=== PATIENT | male | born 1945 | race Caucasian/White ===

== ENCOUNTER → 2020-07-18 15:51 | Outpatient (CLI) | payer OTHER, SELFPAY ==
--- NOTE | 2020-07-18 | DI.RAD.S_ITS ---
PROCEDURE: XR CHEST 2V INDICATIONS: DYSPNEA TECHNIQUE: 2 views of the chest were acquired. COMPARISON: None. FINDINGS: Surgical changes and devices: None. Lungs and pleura: Lungs are clear. No pleural effusions or pneumothorax. Mediastinum: Mediastinal contours are normal. Heart size is normal. Bones and chest wall: No suspicious bony abnormalities. Soft tissues appear unremarkable. IMPRESSION: Normal for age, source of current dyspnea symptoms is not seen. Dictated by: Marcelo Amezcua M.D. on 07/18/2020 at 17:13 Approved by: Marcelo Amezcua M.D. on 07/18/2020 at 17:13
== END ==
PROVIDERS: PCP Family Medicine; Referring Provider Family Medicine; Visit Provider Family Medicine
DX: R06.00 Dyspnea, unspecified (principal)
CPT/HCPCS: 71046

== ENCOUNTER → 2020-10-02 11:29 | Outpatient (CLI) | payer OTHER, SELFPAY ==
[2020-10-02 12:49] LABS: COVID19 -Nasal RAPID Negative (Negative)
== END ==
PROVIDERS: PCP Family Medicine; Visit Provider Physician Assistant
DX: Z20.822 Contact with and (suspected) exposure to COVID-19 (principal)
CPT/HCPCS: 87635

== ENCOUNTER 2020-10-03 07:49 | Day surgery (SDC) | payer OTHER, SELFPAY ==
[2020-10-03] MEDS: PROPARACAINE 0.5% OPHTH SOL 2 DROPS EYE-OP (08:31)
[2020-10-03] MEDS: CATARACT EYE COMPOUND (10 DROPS/SYRINGE) 3 DROPS EYE-OP (08:32)
[2020-10-03 08:41] VITALS: BP 140/85; PULSE 55; RESP 16; TEMP 36.7; O2SAT 97; BMI 30.7
--- NOTE | 2020-10-03 09:37 | P.OP_ITS ---
Operative Date/Time/Diagnoses Pre-op diagnosis: Nuclear Cataract Left eye Post-op diagnosis: same Procedure & Clinicians Same procedure as scheduled: Yes Surgeon: Prateek Pereira Anesthesia Type: MAC +/- and Sedation Operative Notes Procedure in detail: Patient brought to the operating suite. Tetracaine drops placed in the left eye. Patient was prepped and draped in sterile manner. Wire lid speculum was placed in the eye. Betadine drops were placed on the eye. This was irrigated. Lidocaine jelly was placed on the eye. A paracentesis port was created with a side-port blade. 0.1 mL 1% preservative free lidocaine was injected into the anterior chamber. The anterior chamber was deepened with viscoelastic. 2.6 mm keratome was used to create a temporal clear corneal incision. Cystotome and Utrata forceps were used to create continuous tear capsulorrhexis. Balanced salt solution was used to hydro dissect the nucleus. The phacoemulsification handpiece was inserted and the nucleus was removed using the stop and chop technique. The irrigation aspiration handpiece was inserted and the remaining cortex was removed. Anterior chamber was deepened with viscoe lastic. An Silva ZCB00 intraocular lens with a power of 21.5 was injected into the capsular bag. Irrigation aspiration handpiece was inserted and the remaining viscoelastic was removed. Incision was hydrated with balanced salt solution and found to be leak free with pressure with Weck-Jodi sponges. 0.1 mL Vigamox injected anterior chamber. 0.3 mL Kenalog 10 mg was injected subconjunctivally. Lid speculum was removed. The patient left the operating room in excellent condition. Complications: none Post-operative Condition: stable Disposition: same day surgery
--- NOTE | 2020-10-03 09:37 | PM.PREOP ---
Pre-operative Note Interval Note History & Physical reviewed/Exam performed by Physician: Yes Changes to H&P: No
[2020-10-03] MEDS: MOXIFLOXACIN INJ 5 MG/ML VIAL EYE-OP (09:54)
[2020-10-03] MEDS: PHENYLEPHRINE/LIDOCAINE VIAL (OR) 0.2 ML EYE-OP (09:54)
[2020-10-03] MEDS: CHONDROIDTIN/SOD HYALURONATE 1.05 ML SYRINGE INTRAOCULA (09:54)
[2020-10-03] MEDS: TRIAMCINOLONE 50 MG/5 ML VIAL INJ (09:55)
[2020-10-03] MEDS: BALANCED SALT IRRIG SOLN NO.2 500 ML, EPINEPHrine 1 MG IRR (09:55)
[2020-10-03] MEDS: TETRACAINE 0.5% OPHTH DROPS 4 ML 2 DROPS EYE-OP (09:55)
[2020-10-03] MEDS: LIDOCAINE 2% (GLYDO) 6 ML GEL TOP (09:56)
[2020-10-03 10:18] VITALS: BP 110/75; PULSE 58; RESP 16; TEMP 36.4; O2SAT 96
== END 2020-10-03 10:36 | disposition home or self-care (01) ==
LOC: OR 07:51
PROVIDERS: PCP Family Medicine; Referring Provider Ophthalmology; Visit Provider Ophthalmology
PROC: (CPT 66984; principal; 2020-10-03 09:45)
DX: H25.12 Age-related nuclear cataract, left eye (principal); I10 Essential (primary) hypertension
CPT/HCPCS: 66984; J0171; J2250; J3301

== ENCOUNTER → 2020-10-16 10:13 | Outpatient (CLI) | payer OTHER, SELFPAY ==
[2020-10-16 13:46] LABS: COVID19 -Nasal RAPID Negative (Negative)
== END ==
PROVIDERS: PCP Family Medicine; Visit Provider Physician Assistant
DX: Z20.822 Contact with and (suspected) exposure to COVID-19 (principal)
CPT/HCPCS: 87635

== ENCOUNTER 2020-10-17 07:59 | Day surgery (SDC) | payer OTHER, SELFPAY ==
[2020-10-17] MEDS: PROPARACAINE 0.5% OPHTH SOL 2 DROPS EYE-OP (08:38)
[2020-10-17] MEDS: CATARACT EYE COMPOUND (10 DROPS/SYRINGE) 3 DROPS EYE-OP (08:38)
[2020-10-17 08:48] VITALS: BP 165/80; PULSE 55; RESP 14; TEMP 37; O2SAT 96; BMI 30.7
--- NOTE | 2020-10-17 09:26 | PM.PREOP ---
Pre-operative Note Interval Note History & Physical reviewed/Exam performed by Physician: Yes Changes to H&P: No
--- NOTE | 2020-10-17 09:26 | PM.OP.1 ---
Operative Date/Time/Diagnoses Pre-op diagnosis: Nuclear cataract right eye Procedure & Clinicians Procedure: Cataract Surgery Same procedure as scheduled: Yes Surgeon: Prateek Pereira Anesthesia Type: MAC +/- and Sedation Operative Notes Procedure in detail: Patient brought to the operating suite. Tetracaine drops placed in the right eye. Patient was prepped and draped in sterile manner. Wire lid speculum was placed in the eye. Betadine drops were placed on the eye. This was irrigated. Lidocaine jelly was placed on the eye. A paracentesis port was created with a side-port blade. 0.1 mL 1% preservative free lidocaine was injected into the anterior chamber. The anterior chamber was deepened with viscoelastic. 2.6 mm keratome was used to create a temporal clear corneal incision. Cystotome and Utrata forceps were used to create continuous tear capsulorrhexis. Balanced salt solution was used to hydro dissect the nucleus. The phacoemulsification handpiece was inserted and the nucleus was removed using the stop and chop technique. The irrigation aspiration handpiece was inserted and the remaining cortex was removed. Anterior chamber was deepened with viscoelastic. An Silva ZCB00 intraocular lens with a power of 21.5 was injected into the capsular bag. Irrigation aspiration handpiece was inserted and the remaining viscoelastic was removed. Incision was hydrated with balanced salt solution and found to be leak free with pressure with Weck-Jodi sponges. 0.1 mL Vigamox injected anterior chamber. 0.3 mL Kenalog 10 mg was injected subconjunctivally. Lid speculum was removed. The patient left the operating room in excellent condition. Complications: none Post-operative Condition: stable Disposition: same day surgery
[2020-10-17] MEDS: LIDOCAINE 2% (GLYDO) 6 ML GEL TOP (09:39)
[2020-10-17] MEDS: CHONDROIDTIN/SOD HYALURONATE 1.05 ML SYRINGE INTRAOCULA (09:39)
[2020-10-17] MEDS: PHENYLEPHRINE/LIDOCAINE VIAL (OR) 0.2 ML EYE-OP (09:39)
[2020-10-17] MEDS: MOXIFLOXACIN INJ 4 MG/0.8 ML VIAL 0.5 MG EYE-OP (09:39)
[2020-10-17] MEDS: TRIAMCINOLONE 50 MG/5 ML VIAL INJ (09:40)
[2020-10-17] MEDS: TETRACAINE 0.5% OPHTH DROPS 4 ML 2 DROPS EYE-OP (09:40)
[2020-10-17] MEDS: BALANCED SALT IRRIG SOLN NO.2 500 ML, EPINEPHrine 1 MG IRR (09:40)
[2020-10-17 10:04] VITALS: BP 160/70; PULSE 61; RESP 14; TEMP 36.6; O2SAT 96
== END 2020-10-17 10:15 | disposition home or self-care (01) ==
PROVIDERS: PCP Family Medicine; Referring Provider Ophthalmology; Visit Provider Ophthalmology
PROC: (CPT 66984; principal; 2020-10-17 09:45)
DX: H25.11 Age-related nuclear cataract, right eye (principal); I10 Essential (primary) hypertension
CPT/HCPCS: 66984; J0171; J2250; J3301

== ENCOUNTER → 2024-10-25 09:30 | Outpatient (CLI) | payer OTHER, SELFPAY ==
--- NOTE | 2024-10-25 09:31 | DI.RAD.S_ITS ---
PROCEDURE: XR CERVICAL SPINE 2V OR 3V INDICATIONS: numbness, weakness of right hand, neck pain TECHNIQUE: Three views of the cervical spine were acquired. COMPARISON: None. FINDINGS: Cervical spine curvature and alignment: Normal. Bones: There are no osseous abnormalities. Disc spaces: Mild C5-6 C6-7 degenerative disc disease noted. There is mild C2-3 through C7-T1 degenerative facet disease Soft tissues: No soft tissue swelling, calcification or mass. IMPRESSION: Degeneration Dictated by: Audi Hsu M.D. on 10/25/2024 at 12:02 Approved by: Audi Hsu M.D. on 10/25/2024 at 12:03
== END ==
PROVIDERS: PCP Family Medicine; Referring Provider Family Medicine; Visit Provider Family Medicine
DX: M50.322 Other cervical disc degeneration at C5-C6 level (principal); M62.521 Muscle wasting and atrophy, not elsewhere classified, right upper arm; R29.898 Other symptoms and signs involving the musculoskeletal system; M47.812 Spondylosis without myelopathy or radiculopathy, cervical region; G89.29 Other chronic pain
CPT/HCPCS: 72040

== ENCOUNTER → 2024-10-27 07:02 | Outpatient (CLI) | payer OTHER, SELFPAY ==
--- NOTE | 2024-10-27 07:03 | DI.MRI.S_ITS ---
PROCEDURE: MR CERVICAL SPINE WO CON INDICATIONS: numbness, weakness of right hand, neck pain TECHNIQUE: Noncontrast sagittal T1 spin echo and T2 fast spin echo, sagittal STIR, foraminal oblique sagittal T2 fast spin echo, and axial gradient echo or T2 fast spin echo through the cervical spine. COMPARISON: [facility], CR, XR CERVICAL SPINE 2V OR 3V, 10/25/2024, 9:28. FINDINGS: Image quality: Excellent. Alignment and Curvature: There is trace, approximately 1-2 millimeters of C6-C7 and C7-T1 anterolisthesis. Bone Marrow: Marrow demonstrates normal overall signal. Spinal Cord: Visualized spinal cord has normal size and signal. No cerebellar tonsillar herniation. Paraspinous Soft Tissues: No paravertebral masses. Prevertebral soft tissues are normal in thickness. C2-C3: Loss of disc signal. Mild, diffuse disc bulge. No central stenosis. No neural foraminal narrowing. No neural compression. C3-C4: Loss of disc signal. Moderate, diffuse disc bulge. Mild bilateral facet hypertrophy. Mild right and moderate left uncovertebral hypertrophy. Severe narrowing of the central canal with slight compression of the cervical spinal cord. Severe bilateral neural foraminal narrowing with compression of the exiting C4 nerve roots. C4-C5: Loss of disc signal. Mild, diffuse disc bulge. Mild bilateral facet hypertrophy. Moderate narrowing of the central canal. Severe right and moderate left neural foraminal narrowing with compression of the exiting right C5 nerve root. C5-C6: Loss of disc signal and height. Mild, diffuse disc bulge. Mild bilateral facet hypertrophy. Mild bilateral uncovertebral hypertrophy. Mild to moderate narrowing of the central canal. Moderate bilateral neural foraminal narrowing. No neural compression. C6-C7: Loss of disc signal and mild loss of disc height. Mild bilateral facet hypertrophy. Mild left uncovertebral hypertrophy. No central stenosis. Mild left neural foraminal narrowing. No neural compression. C7-T1: Loss of disc signal. No central stenosis. No neural foraminal narrowing. No neural compression. IMPRESSION: Multilevel degenerative disc disease. Multilevel facet arthropathy and uncovertebral arthropathy. Severe C3-C4 central canal stenosis with slight compression of the cervical spinal cord. Severe bilateral C3-C4 neural foraminal stenosis with compression of the C4 nerve roots. Severe right C4-C5 neural foraminal stenosis with compression of the exiting right C5 nerve root. Dictated by: Karina Juarez MD, PhD on 10/27/2024 at 12:11 Approved by: Karina Juarez MD, PhD on 10/27/2024 at 12:17
== END ==
PROVIDERS: PCP Family Medicine; Referring Provider Family Medicine; Visit Provider Family Medicine
DX: M47.812 Spondylosis without myelopathy or radiculopathy, cervical region (principal); M48.02 Spinal stenosis, cervical region; M50.31 Other cervical disc degeneration, high cervical region; R29.898 Other symptoms and signs involving the musculoskeletal system; M62.521 Muscle wasting and atrophy, not elsewhere classified, right upper arm; G89.29 Other chronic pain
CPT/HCPCS: 72141

== ENCOUNTER → 2025-03-22 07:10 | Outpatient (CLI) | payer OTHER, SELFPAY ==
[2025-03-22 07:41] LABS: Add Manual Diff / Slide Review NO; Hematocrit 43.2 % (41-53); Hemoglobin 14.5 g/dL (13.5-17.5); Lymphocytes Absolute Auto 2300 /uL (1100-4500); Mean Corpuscular HGB Conc 33.6 % (30-36); Mean Corpuscular Hemoglobin 30.4 PG (26-34); Mean Corpuscular Volume 90.6 fL (80-100); Platelet Count 230 X10^3/uL (150-400)
[2025-03-22 08:10] LABS: Blood Urea Nitrogen 16 mg/dL (9-20); Calcium 8.9 mg/dL (8.4-10.2); Carbon Dioxide 27 mmol/L (22-32); Chloride 105 mmol/L (98-107); Cholesterol 191 mg/dL (140-199); Estimated Glomerular Filt Rate > 60 mL/min (>60); Glucose 96 mg/dL (70-99); HDL Cholesterol 50 mg/dL (40-60); HEMOLYSIS < 15 (0-50); Potassium 4.4 mmol/L (3.4-5.1); Sodium 139 mmol/L (137-145); Triglycerides 108 mg/dL (35-150)
== END ==
PROVIDERS: PCP Family Medicine; Referring Provider Family Medicine; Visit Provider Family Medicine
DX: E78.5 Hyperlipidemia, unspecified (principal)
CPT/HCPCS: 36415; 80048; 80061; 85025

== ENCOUNTER 2025-04-23 15:35 | Emergency (ER) | payer OTHER, SELFPAY ==
[2025-04-23] VITALS (13 sets, daily range): BP systolic 108–158; BP diastolic 72–92; PULSE 50–71; RESP 16–26; TEMP 36.4; O2SAT 93–98; BMI 29.9
--- NOTE | 2025-04-23 15:45 | DI.RAD.S_ITS ---
PROCEDURE: XR CHEST 1V INDICATIONS: Chest Pain TECHNIQUE: One view of the chest was acquired. COMPARISON: , CR, XR CHEST 2V, 07/18/2020, 16:53. FINDINGS: Surgical changes and devices: None. Lungs and pleura: Lungs are clear. No pleural effusions or pneumothorax. Mediastinum: Mediastinal contours appear normal. Heart size is normal. Bones and chest wall: No suspicious bony lesions. Overlying soft tissues appear unremarkable. IMPRESSION: No acute cardiopulmonary abnormality is seen. Approved by: Eros Allison M.D. on 04/23/2025 at 15:33
--- NOTE | 2025-04-23 15:51 | EKG_ITS ---
[id number] [address] Test Date: 2025-04-23 Pat Name: Soy Moe Department: Room: Gender: Male Information Resources Director: : 1945 Requested By: Order Number: [id number] Reading MD: Audi Mathews MD Measurements Intervals Daisy Rate: 68 P: 46 CA: 156 QRS: -17 QRSD: 86 T: 33 QT: 406 QTc: 431 Interpretive Statements Normal sinus rhythm Possible Anterior infarct , age undetermined Electronically Signed On 04-24-2025 7:41:07 PDT by Audi Mathews MD
[2025-04-23 16:07] LABS: Add Manual Diff / Slide Review NO; Hematocrit 41.0 % (41-53); Hemoglobin 14.0 g/dL (13.5-17.5); Lymphocytes Absolute Auto 2400 /uL (1100-4500); Mean Corpuscular HGB Conc 34.1 % (30-36); Mean Corpuscular Hemoglobin 30.7 PG (26-34); Mean Corpuscular Volume 90.0 fL (80-100); Platelet Count 242 X10^3/uL (150-400)
[2025-04-23 16:16] LABS: INR 1.3 (0.9-1.3); Prothrombin Time 14.4 SECONDS (9.4-12.5)
[2025-04-23 16:19] LABS: PTT Partial Thromboplastin Tim 27 SECONDS (25.1-36.5)
[2025-04-23 16:20] LABS: Alanine Aminotransferase 26 IU/L (<50); Albumin 4.4 g/dL (3.5-5.0); Albumin Globulin Ratio 1.5 (1.0-2.8); Alkaline Phosphatase 46 U/L (38-126); Blood Urea Nitrogen 18 mg/dL (9-20); Calcium 8.9 mg/dL (8.4-10.2); Carbon Dioxide 24 mmol/L (22-32); Chloride 104 mmol/L (98-107); Creatine Kinase 286 U/L (55-170); Estimated Glomerular Filt Rate > 60 mL/min (>60); Globulin 2.9 g/dL (1.7-4.1); Glucose 114 mg/dL (70-99); Lipase 74 U/L (23-300); Magnesium 2.2 mg/dL (1.6-2.3); Potassium 3.9 mmol/L (3.4-5.1); Sodium 138 mmol/L (137-145); Total Protein 7.3 g/dL (6.3-8.2)
[2025-04-23 16:30] LABS: HEMOLYSIS < 15 (0-50); NT-proBNP (BNP-Adult 18+) 433 pg/mL (<450)
[2025-04-23 16:31] LABS: Troponin I 0.029 ng/mL (0.01-0.034)
--- NOTE | 2025-04-23 17:58 | DI.CT.S_ITS ---
PROCEDURE: CT ANGIO CHEST PE PROTOCOL INDICATIONS: chest pain sob TECHNIQUE: After the administration of intravenous contrast, 2 mm thick sections acquired from the pulmonary apices to the posterior costophrenic angles. 3-dimensional maximum intensity projection (MIP) coronal and sagittal reformats were then acquired through the thorax. For radiation dose reduction, the following was used: automated exposure control, adjustment of mA and/or kV according to patient size. COMPARISON: None. FINDINGS: Image quality: Diagnostic. Pulmonary arteries: Pulmonary arteries are normal in size, and demonstrate no intraluminal filling defects to suggest central pulmonary embolism. Lower Neck: No enlarged lymph nodes. Thyroid: No thyroid nodules which require sonographic follow up, per consensus guidelines. Axillae: No enlarged lymph nodes. Chest Wall: Unremarkable. Bones: Unremarkable. Lungs and Pleura: No pneumothorax or pleural effusions. No consolidation or suspicious nodules. Heart: Heart size is normal. No pericardial effusion. Thoracic Vessels: No aortic aneurysm. Mediastinum and Ana Lilia: No enlarged lymph nodes. Esophagus: No wall thickening. No hiatal hernia. Upper Abdomen: Hepatic and left renal cysts measures up to 4.3 cm IMPRESSION: Unremarkable CT chest angiogram without evidence of pulmonary embolism, aortic dissection or aneurysm No acute cardiopulmonary process. Approved by: Eros Allison M.D. on 04/23/2025 at 18:05
--- NOTE | 2025-04-23 18:02 | ED_ITS ---
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 He denies active chest pain, back pain, loss of consciousness, diarrhea, constipation, abdominal pain, back pain, increased leg pain, or swelling. Other than what is stated 14 point review of system is negative. Related Data Previous Rx's ?Medication ?Instructions ?Recorded rivaroxaban 20 mg tablet 20 mg PO DAILY #90 tabs 02/05 02/28 Allergies Allergy/AdvReac Type Severity Reaction Status Date / Time No Known Drug Allergies Allergy Verified 04/23/25 15:38 Review of Systems Review of Systems ROS Unobtainable: All systems reviewed & are unremarkable except as noted in HPI and below Patient History Medical History (Updated 04/23/25 @ 21:18 by Audi Chamberlain DO) Edema, lower extremity Actinic keratosis of left cheek Medicare annual wellness visit, subsequent Hyperlipidemia, mild Hx of deep venous thrombosis Surgical History (Updated 03/15/22 @ 10:00 by Eleno Schaefer DO) Hx of cataract surgery Social History household members: spouse Smoking Status: Former smoker alcohol intake: current Smoking Status: Former smoker alcohol intake frequency: 0-2 drinks per day Exam Narrative Exam Narrative: GENERAL: [79] year old patient appears stated age. Well-developed patient, in mild distress. HEAD: Atraumatic. Normocephalic. EYES: Pupils equal round and reactive. Extraocular motions intact. No scleral icterus. No injection or drainage. ENT: Nose without bleeding, purulent drainage. Throat without erythema, tonsillar hypertrophy or exudate. Airway patent. NECK: Trachea midline. Non tender CARDIOVASCULAR: Regular rate and rhythm without murmurs, gallops, or rubs. RESPIRATORY: Clear to auscultation. Breath sounds equal bilaterally. No wheezes, rales, or rhonchi. GASTROINTESTINAL: Abdomen soft, non-tender, nondistended. EXTREMITIES: No edema or joint tenderness. BACK: Nontender without deformity or crepitance. No flank tenderness. NEURO: AOx3. SKIN: No rash or erythema of visible areas Initial Vital Signs Initial Vital Signs: Vital Signs Temperature 97.6 F 04/23/25 15:38 Pulse Rate 71 04/23/25 15:38 Respiratory Rate 18 04/23/25 15:38 Blood Pressure 142/89 H 04/23/25 15:38 Pulse Oximetry 97 04/23/25 15:38 Oxygen Delivery Method Room Air 04/23/25 15:38 Course Orders Ordered: ED Orders 04/23/25 15:45 XR chest 1V Stat EKG-12 Lead Stat 04/23/25 15:57 Complete Blood Count AUTO DIFF Stat Comprehensive Metabolic Panel Stat Lipase Stat Magnesium Stat NT-proBNP (BNP-Adult 18+) Stat PTT Partial Thromboplastin Sandeep Stat Prothrombin Time INR Stat Troponin & CK Cardiac Panel Stat 04/23/25 17:58 CT angio chest PE protocol Stat 04/23/25 18:12 CT head/brain wo con Stat 04/23/25 18:33 Troponin I Stat 04/23/25 19:28 MR head/brain wo con Stat Discontinued Medications Aspirin (Aspirin 81 Mg Chew Tab) 324 mg PO NOW ONE Stop: 04/23/25 15:46 Last Admin: 04/23/25 16:01 Dose: Not Given Documented By: SGF Vital Signs Vital signs: Vital Signs - 8 hr 04/23/25 15:38 04/23/25 15:50 04/23/25 15:54 Temperature 97.6 F Pulse Rate 71 69 Respiratory Rate 18 Blood Pressure 142/89 H 158/92 H Pulse Oximetry 97 95 Oxygen Delivery Method Room Air 04/23/25 15:54 04/23/25 16:00 04/23/25 16:00 Temperature Pulse Rate 67 61 Respiratory Rate 26 H 16 Blood Pressure 131/79 Pulse Oximetry 97 96 Oxygen Delivery Method 04/23/25 16:30 04/23/25 16:30 04/23/25 17:00 Temperature Pulse Rate 57 L 54 L Respiratory Rate 22 25 H Blood Pressure 113/77 Pulse Oximetry 94 93 Oxygen Delivery Method 04/23/25 17:00 04/23/25 17:30 04/23/25 17:30 Temperature Pulse Rate 54 L Respiratory Rate 25 H Blood Pressure 108/72 116/76 Pulse Oximetry 95 Oxygen Delivery Method 04/23/25 18:00 04/23/25 18:00 04/23/25 18:30 Temperature Pulse Rate 50 L 51 L Respiratory Rate 23 20 Blood Pressure 109/80 Pulse Oximetry 96 97 Oxygen Delivery Method 04/23/25 19:00 04/23/25 19:30 04/23/25 20:20 Temperature Pulse Rate 50 L 52 L 60 Respiratory Rate 22 26 H Blood Pressure Pulse Oximetry 94 95 96 Oxygen Delivery Method 04/23/25 20:23 04/23/25 20:23 Temperature Pulse Rate 56 L Respiratory Rate 24 Blood Pressure 146/73 H Pulse Oximetry 98 Oxygen Delivery Method Room Air MDM - SOB/Dyspnea Lab Data 04/23/25 15:57 04/23/25 15:57 Labs: Lab Results 04/23/25 04/23/25 Range/Units 15:57 18:33 WBC 5.8 (4.5-11.0) X10^3/uL RBC 4.56 (4.5-5.9) X10^6/uL Hgb 14.0 (13.5-17.5) g/dL Hct 41.0 (41-53) % MCV 90.0 (80-100) fL MCH 30.7 (26-34) PG MCHC 34.1 (30-36) % RDW 13.1 (11.6-14.8) % Plt Count 242 (150-400) X10^3/uL Neut % (Auto) 49.8 L (50-75) % Lymph % (Auto) 40.3 H (25-40) % Sublette % (Auto) 7.9 (3-14) % Eos % (Auto) 1.5 L (2-4) % Baso % (Auto) 0.5 (0-2) % Neut # (Auto) 2900 (5854-7831) /uL Lymph # (Auto) 2400 (7549-3812) /uL Sublette # (Auto) 500 (0-900) /uL Eos # (Auto) 100 (0-450) /uL Baso # (Auto) 0 (0-100) /uL PT 14.4 H (9.4-12.5) SECONDS INR 1.3 (0.9-1.3) APTT 27 (25.1-36.5) SECONDS Sodium 138 (137-145) mmol/L Potassium 3.9 (3.4-5.1) mmol/L Chloride 104 (98-107) mmol/L Carbon Dioxide 24 (22-32) mmol/L BUN 18 (9-20) mg/dL Creatinine 0.86 (0.66-1.25) mg/dL Estimated GFR > 60 (>60) mL/min BUN/Creatinine Ratio 20.9 (6-22) Glucose 114 H (70-99) mg/dL Calcium 8.9 (8.4-10.2) mg/dL Magnesium 2.2 (1.6-2.3) mg/dL Total Bilirubin 0.5 (0.2-1.3) mg/dL AST 34 (17-59) IU/L ALT 26 (<50) IU/L Alkaline Phosphatase 46 (38-126) U/L Total Creatine Kinase 286 H (55-170) U/L Troponin I 0.029 0.025 (0.01-0.034) ng/mL NT-Pro-B Natriuret Pep 433 (<450) pg/mL Total Protein 7.3 (6.3-8.2) g/dL Albumin 4.4 (3.5-5.0) g/dL Globulin 2.9 (1.7-4.1) g/dL Albumin/Globulin Ratio 1.5 (1.0-2.8) Lipase 74 (23-300) U/L Imaging Data Chest x-ray: Radiologist's Impression: [address] [address] XRay Report Signed Patient: Soy Moe MR#: [id number] : 1945 Acct:[id number] Age/Sex: 79 / M Date of Service: 04/23/25 Loc: ED Accession Number: [id number] Procedure: XR chest 1V Ordering Provider: Peyton Herrera D.O. PROCEDURE: XR CHEST 1V INDICATIONS: Chest Pain TECHNIQUE: One view of the chest was acquired. COMPARISON: [facility], [place], XR CHEST 2V, 07/18/2020, 16:53. FINDINGS: Surgical changes and devices: None. Lungs and pleura: Lungs are clear. No pleural effusions or pneumothorax. Mediastinum: Mediastinal contours appear normal. Heart size is normal. Bones and chest wall: No suspicious bony lesions. Overlying soft tissues appear unremarkable. IMPRESSION: No acute cardiopulmonary abnormality is seen. CT scan - chest: Radiologist's Impression: [address] [address] [address] Scan Report Signed Patient: Soy Moe MR#: [id number] : 1945 Acct:[id number] Age/Sex: 79 / M Date of Service: 04/23/25 Loc: ED Accession Number: [id number] Procedure: CT angio chest PE protocol Ordering Provider: Audi Chamberlain D.O. PROCEDURE: CT ANGIO CHEST PE PROTOCOL INDICATIONS: chest pain sob TECHNIQUE: After the administration of intravenous contrast, 2 mm thick sections acquired from the pulmonary apices to the posterior costophrenic angles. 3-dimensional maximum intensity projection (MIP) coronal and sagittal reformats were then acquired through the thorax. For radiation dose reduction, the following was used: automated exposure control, adjustment of mA and/or kV according to patient size. COMPARISON: None. FINDINGS: Image quality: Diagnostic. Pulmonary arteries: Pulmonary arteries are normal in size, and demonstrate no intraluminal filling defects to suggest central pulmonary embolism. Lower Neck: No enlarged lymph nodes. Thyroid: No thyroid nodules which require sonographic follow up, per consensus guidelines. Axillae: No enlarged lymph nodes. Chest Wall: Unremarkable. Bones: Unremarkable. Lungs and Pleura: No pneumothorax or pleural effusions. No consolidation or suspicious nodules. Heart: Heart size is normal. No pericardial effusion. Thoracic Vessels: No aortic aneurysm. Mediastinum and Ana Lilia: No enlarged lymph nodes. Esophagus: No wall thickening. No hiatal hernia. Upper Abdomen: Hepatic and left renal cysts measures up to 4.3 cm IMPRESSION: Unremarkable CT chest angiogram without evidence of pulmonary embolism, aortic dissection or aneurysm No acute cardiopulmonary process. CT scan - head: Radiologist's Impression: [address] [address] [address] Scan Report Signed Patient: Soy Moe MR#: [id number] : 1945 Acct:[id number] Age/Sex: 79 / M Date of Service: 04/23/25 Loc: ED Accession Number: [id number] Procedure: CT head/brain wo con Ordering Provider: Audi Chamberlain D.O. PROCEDURE: CT HEAD/BRAIN WO CON INDICATIONS: dizziness on thinners TECHNIQUE: Noncontrast 4.5 mm thick angled axial sections acquired from the foramen magnum to the vertex, with coronal and sagittal reformats. For radiation dose reduction, the following was used: automated exposure control, adjustment of mA and/or kV according to patient size. COMPARISON: None. FINDINGS: Image quality: Diagnostic. CSF spaces: Basal cisterns are patent. No extra-axial fluid collections. Ventricles are normal in size and shape. Brain: No midline shift. No intracranial mass effect or hemorrhage. Boyle- white matter interface is normal. Punctate 3-4 mm hyperdensity in a right lentiform nucleus Skull and face: Calvarium and visualized facial bones are intact, without suspicious lesions. Sinuses: Visualized sinuses and mastoids are clear. IMPRESSION: Punctate hyperdensity in the right basal ganglia. Differential would be senescent mineralization versus less likely punctate petechial hemorrhage. Consider either short-term interval follow-up or MR eval Note: Critical results were discussed with Dr. Chamberlain at 05:52 PM [place] time on 04/23/25 Approved by: Eros Allison M.D. on 04/23/2025 at 17:53 Extremity x-ray #1: Radiologist's Impression: [place] [address] Magnetic Resonance Report Signed Patient: Soy Moe MR#: [id number] : 1945 Acct:[id number] Age/Sex: 79 / M Date of Service: 04/23/25 Loc: ED Accession Number: [id number] Procedure: MR head/brain wo con Ordering Provider: Audi Chamberlain D.O. PROCEDURE: MR HEAD/BRAIN WO CON INDICATIONS: Please evaluate for bleed per rads recommendation TECHNIQUE: Non-contrast axial T1 spin echo, axial T2 fast spin echo, sagittal and axial FLAIR, coronal T2 fast spin echo, axial gradient echo, axial diffusion and ADC through the brain. COMPARISON: [facility], CT, CT HEAD/BRAIN WO CON, 04/23/2025, 18:20. FINDINGS: Image quality: Excellent. CSF spaces: Ventricles appear symmetric in size and shape. Basal cisterns are patent. No extra-axial fluid collections. Brain: There is a small amount of decreased signal on the GRE sequence within the right basal ganglia. No other signal abnormality can be seen at this site. No intracranial mass effects. There is cerebral volume loss for age. There are periventricular and deep white matter chronic small vessel ischemic changes. Brainstem appears normal. Diffusion-weighted images show no acute infarct. No chronic ischemic insults. Normal intravascular flow voids are present. Skull and face: Calvarial bone marrow is normal in signal. Orbits are normal. Sinuses: There is moderate mucosal thickening within the left maxillary sinus. Milder mucosal thickening is seen elsewhere within the paranasal sinuses. No abnormal fluid is seen within the mastoid air cells. IMPRESSION: Mild signal abnormality seen within the right basal ganglia, which is most in keeping with benign calcification. No servando hemorrhage is seen on this study. ECG Data Interpretation: NSR HR 68 DC 156 QRS [address]-t wave change No previous EKG to compare MDM Narrative Medical decision making narrative: All lab work, vital signs, nurse triage note, medication list, previous ER visits, and all imaging studies reviewed. CK 286 1st set troponin 0.029. 2nd set 0.025 EKG showed normal sinus rhythm no STT wave changes. WBC 5.8 hemoglobin 14 platelet 242 INR 1.3 sodium 138 potassium 3.9 chloride 104 CO2 24 BUN 18 creatinine 0.86 glucose 114 magnesium 2.[address] head showed punctate hyperdensity in the right basal ganglia. Differential would be senescent mineralization versus less likely edwar take petechial hemorrhage. CTA chest shows no evidence of pulmonary embolism aortic dissection or aneurysm. Chest x-ray showed no acute process. Brain MRI mild signal abnormality seen with a right basal ganglia which is in keeping with benign calcification no servando hemorrhage seen on this study. Differential diagnosis PE, CHF, STEMI, NSTEMI, pneumonia, sepsis, stroke, hypertensive emergency, or urgency, aneurysm, dissection, hemorrhage. Patient will follow up PCP next week and call appointment for outpatient of shortness of breath. Discharge Plan Departure Patient Disposition: Home Clinical Impression: Dizziness, Breath shortness Headache Qualifiers: Headache type: unspecified Headache chronicity pattern: acute headache I ntractability: not intractable Qualified Code(s): R51.9 - Headache, unspecified Instructions: DI for Shortness of Breath Activity Restrictions/Additional Instructions: Return with new or worsening symptoms. Please follow up PCP on Friday office for appointment for further workup of shortness of breath. Prescriptions: No Action rivaroxaban 20 mg tablet 20 mg PO DAILY Qty: 90 3RF Rx Instructions: must administer with evening meal Referrals: Eleno Schaefer DO [Primary Care Provider, Family Practice] Stand Alone Forms: Patient Portal/API
--- NOTE | 2025-04-23 18:12 | DI.CT.S_ITS ---
PROCEDURE: CT HEAD/BRAIN WO CON INDICATIONS: dizziness on thinners TECHNIQUE: Noncontrast 4.5 mm thick angled axial sections acquired from the foramen magnum to the vertex, with coronal and sagittal reformats. For radiation dose reduction, the following was used: automated exposure control, adjustment of mA and/or kV according to patient size. COMPARISON: None. FINDINGS: Image quality: Diagnostic. CSF spaces: Basal cisterns are patent. No extra-axial fluid collections. Ventricles are normal in size and shape. Brain: No midline shift. No intracranial mass effect or hemorrhage. Boyle- white matter interface is normal. Punctate 3-4 mm hyperdensity in a right lentiform nucleus Skull and face: Calvarium and visualized facial bones are intact, without suspicious lesions. Sinuses: Visualized sinuses and mastoids are clear. IMPRESSION: Punctate hyperdensity in the right basal ganglia. Differential would be senescent mineralization versus less likely punctate petechial hemorrhage. Consider either short-term interval follow-up or MR eval Note: Critical results were discussed with Dr. Chamberlain at 05:52 PM [place] time on 04/23/25 Approved by: Eros Allison M.D. on 04/23/2025 at 17:53
--- NOTE | 2025-04-23 18:25 | PC.NURSE ---
pt to CT
[2025-04-23 19:03] LABS: Troponin I 0.025 ng/mL (0.01-0.034)
--- NOTE | 2025-04-23 19:28 | DI.MRI.S_ITS ---
PROCEDURE: MR HEAD/BRAIN WO CON INDICATIONS: Please evaluate for bleed per rads md recommendation TECHNIQUE: Non-contrast axial T1 spin echo, axial T2 fast spin echo, sagittal and axial FLAIR, coronal T2 fast spin echo, axial gradient echo, axial diffusion and ADC through the brain. COMPARISON: [facility], CT, CT HEAD/BRAIN WO CON, 04/23/2025, 18:20. FINDINGS: Image quality: Excellent. CSF spaces: Ventricles appear symmetric in size and shape. Basal cisterns are patent. No extra-axial fluid collections. Brain: There is a small amount of decreased signal on the GRE sequence within the right basal ganglia. No other signal abnormality can be seen at this site. No intracranial mass effects. There is cerebral volume loss for age. There are periventricular and deep white matter chronic small vessel ischemic changes. Brainstem appears normal. Diffusion-weighted images show no acute infarct. No chronic ischemic insults. Normal intravascular flow voids are present. Skull and face: Calvarial bone marrow is normal in signal. Orbits are normal. Sinuses: There is moderate mucosal thickening within the left maxillary sinus. Milder mucosal thickening is seen elsewhere within the paranasal sinuses. No abnormal fluid is seen within the mastoid air cells. IMPRESSION: Mild signal abnormality seen within the right basal ganglia, which is most in keeping with benign calcification. No servando hemorrhage is seen on this study. Dictated by: Vu Clements M.D. on 04/23/2025 at 19:59 Approved by: Vu Clements M.D. on 04/23/2025 at 20:00
== END 2025-04-23 21:32 | disposition home or self-care (01) ==
PROVIDERS: Emergency Medicine; Emergency Provider Family Medicine; PCP Family Medicine
DX: R42 Dizziness and giddiness (principal); R07.9 Chest pain, unspecified; R06.02 Shortness of breath; R51.9 Headache, unspecified; Z79.01 Long term (current) use of anticoagulants
CPT/HCPCS: 36415; 70450; 70551; 71045; 71275; 80053; 82550; 83690; 83735; 83880; 84484; 85025; 85610; 85730; 93005; 99284; Q9967